=== PATIENT | female | born 2000 | race Caucasian/White ===

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

== ENCOUNTER 2022-06-05 08:27 | Emergency (ER) | payer MEDICAID ==
[~2022-06-05] VITALS: Ht 167.6 cm; Wt 56.0 kg
[~2022-06-05 08:27] MED LIST changes: -ALBU6.7H INH; +ALBU6.7H9 INH; +NAPR-1170 PO; -NAPR250T4 PO
[2022-06-05 10:34] VITALS: BP 117/83
--- NOTE | 2022-06-05 10:46 | NUR ---
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
[2022-06-05 10:55] LABS: COLOR,URINE YELLOW (Yellow); GLUCOSE, URINE NEGATIVE (Neg); KETONES,URINE NEGATIVE (Neg); LEUKOCYTE ESTERASE ,URINE TRACE (Neg); NITRITES, URINE NEGATIVE (Neg); OCCULT BLOOD,URINE NEGATIVE (Neg); PROTEIN,URINE NEGATIVE (Neg); URINE HCG NEGATIVE (NEG); UROBILINOGEN,URINE 0.2 E.U/dL (0.2-1.0)
[2022-06-05 11:07] LABS: UA COLLECTION TYPE CLN CATCH MIDSTREAM
[2022-06-05 11:08] LABS: CLARITY,URINE SLIGHTLY CLOUDY (Clear)
[2022-06-05 11:10] LABS: BACTERIA,URINE 2+ /HPF (Neg); RBC,URINE 0-2 /HPF (0-2); SQUAMOUS EPITHELIAL CELL,UR MANY /LPF (FEW)
[2022-06-05 11:11] LABS: AMORPHOUS PHOSPHATES 1+; MUCUS STRANDS MODERATE /LPF (Neg)
== END 2022-06-05 11:33 | disposition home or self-care (01) ==
LOC: ER 08:27
DX: G89.29 Other chronic pain (principal); R10.9 Unspecified abdominal pain; Z79.899 Other long term (current) drug therapy
CPT/HCPCS: 76700; 81001; 81025; 99284

== ENCOUNTER 2024-01-30 10:40 | Emergency (ER) | payer MEDICAID ==
[~2024-01-30] VITALS: Ht 167.6 cm; Wt 50.3 kg
[~2024-01-30 10:40] MED LIST changes: +ALBU6.7H14 INH; -ALBU6.7H9 INH
[2024-01-30] MEDS: metoclopramide 5 mg/ml inj IV ONE (15:00)
[2024-01-30] MEDS: normal saline 1000ML IV soln IVB ONE (15:01)
[2024-01-30 15:03] LABS: BASOPHILS # (AUTO) 0.1 X10'3 (0-0.2); EOSINOPHILS % (AUTO) 0.1 % (0-6); HEMATOCRIT 38.5 % (35.0-45.0); LYMPHOCYTES # (AUTO) 1.9 X10'3 (1.1-4.8); LYMPHOCYTES % (AUTO) 23.3 % (21-51); MEAN CORPUSCULAR HEMOGLOBIN 29.7 PG (27.0-31.0); MEAN CORPUSCULAR HGB CONC 33.9 g/dL (33.0-36.5); MEAN CORPUSCULAR VOLUME 87.6 FL (78-98); MEAN PLATELET VOLUME 8.5 FL (7.4-10.4); MONOCYTES # (AUTO) 0.4 X10'3 (0-0.9); MONOCYTES % (AUTO) 4.9 % (2-12); NEUTROPHILS # (AUTO) 5.8 X10'3 (1.8-7.7); NEUTROPHILS % (AUTO) 70.7 % (42-75); PLATELET COUNT 249 X10'3 (140-440); RED CELL DISTRIBUTION WIDTH 18.7 % (11.5-14.5); WHITE BLOOD COUNT 8.2 X10'3 (4.5-11.0)
[2024-01-30 15:18] LABS: ALBUMIN 3.7 G/DL (3.4-5.0); ANION GAP 13 (8-16); BLOOD UREA NITROGEN 7 MG/DL (7-18); BUN/CREATININE RATIO 11.9 (10.0-20.0); CALCIUM 9.1 MG/DL (8.5-10.1); CHLORIDE 100 MMOL/L (99-107); CREATININE 0.59 MG/DL (0.40-0.90); GLUCOSE 85 MG/DL (70-104); LIPASE 32 U/L (16-77); POTASSIUM 3.4 MMOL/L (3.5-5.1); SODIUM 136 MMOL/L (135-145); TOTAL CARBON DIOXIDE 23.1 MMOL/L (24-32); eCRCL 119 ML/MIN; eGFR > 90 ML/MIN
[2024-01-30 15:25] LABS: BILIRUBIN,URINE NEGATIVE (Neg); CLARITY,URINE CLEAR (Clear); COLOR,URINE YELLOW (Yellow); GLUCOSE, URINE NEGATIVE (Neg); KETONES,URINE >=80 mg/dl (Neg); LEUKOCYTE ESTERASE ,URINE NEGATIVE (Neg); NITRITES, URINE NEGATIVE (Neg); OCCULT BLOOD,URINE NEGATIVE (Neg); PH,URINE 6.5 (4.8-8.0); PROTEIN,URINE NEGATIVE (Neg); UROBILINOGEN,URINE 0.2 E.U/dL (0.2-1.0)
[2024-01-30 15:29] LABS: UA COLLECTION TYPE CLN CATCH MIDSTREAM
[2024-01-30 16:00] VITALS: TEMP 98
[2024-01-30 16:18] LABS: URINE HCG POSITIVE (NEG)
[2024-01-30] MEDS ORDERED: pantoprazole 40 MG vial IV SCH (17:00)
[2024-01-30] MEDS ORDERED: METO-292 PO (17:50)
[2024-01-30] MEDS: pantoprazole 40 MG vial IV ONE (19:02)
[2024-01-30 19:03] VITALS: BP 126/77; PULSE 81; RESP 18; O2SAT 98
== END 2024-01-30 19:08 | disposition home or self-care (01) ==
LOC: ER 10:41
DX: O21.0 Mild hyperemesis gravidarum (principal); Z3A.16 16 weeks gestation of pregnancy; Z79.899 Other long term (current) drug therapy
CPT/HCPCS: 36415; 76805; 80048; 81003; 81025; 83690; 84702; 85025; 86900; 86901; 96361; 96374; 99285; J2765; J7030